=== PATIENT | female | born 1940 | race Caucasian/White ===

== ENCOUNTER 2016-08-26 12:49 | Inpatient (IN) | payer OTHER ==
[~2016-08-26] VITALS: Ht 157.5 cm; Wt 64.0 kg
[2016-08-26] MEDS ORDERED: GABA-532 PO (13:15)
[2016-08-26] MEDS ORDERED: GUAI120018 PO (13:15)
[2016-08-26] MEDS ORDERED: IBUP-1481 PO (13:15)
[2016-08-26] MEDS ORDERED: ASPI81TA31 PO (13:15)
[2016-08-26] MEDS ORDERED: SIMV20TA6 PO (13:15)
[2016-08-26] MEDS ORDERED: CALC-555 PO (13:15)
[2016-08-26] MEDS ORDERED: TEMA15CA5 PO (13:15)
[2016-08-26] MEDS ORDERED: TRAM50TA PO (13:15)
[2016-08-26] MEDS ORDERED: OMEP20CA10 PO (13:15)
--- NOTE | 2016-08-26 13:41 | NUR ---
pt transfered to floor in stable condition
--- NOTE | 2016-08-26 13:41 | NUR ---
hospital food tray provided per pt request,md ramos
[2016-08-26] MEDS ORDERED: MAGNESIUM HYDROXIDE 30 ML LIQUID UDC PO PRN (14:00)
[2016-08-26] MEDS ORDERED: LORAZEPAM 0.5 MG TABLET PO PRN (14:00)
[2016-08-26] MEDS ORDERED: TEMAZEPAM 7.5 MG CAPSULE PO PRN (14:00)
[2016-08-26] MEDS ORDERED: MAG HYDROX/AL HYDROX/SIMETH 30 ML LIQUID UDC PO PRN (14:00)
[2016-08-26] MEDS ORDERED: ACETAMINOPHEN 325 MG TABLET PO PRN (14:00)
--- NOTE | 2016-08-26 14:45 | NUR ---
[facility] PT IS ADMITTED FROM ER ON 5150 FOR DTS AND DTO. ACCORDING TO THE HOLD, PT HAD ARGUMENT WITH FAMILY, WAS UPSET ABOUT HER DAUGHTER SPENDING ALL THEIR MONEY. PT STATES THAT SHE WOULD KILL HERSELF. PT WAS PULLING HER HAIR OUT AND THEN TOOK A KNIFE AND PLACED IT TO HER THROAT. PT DENIES USING THE KNIFE. PT IS ANXIOUS ON APPROACH AND REPORTS MULTIPLE STRESSORS IN THE FAMILY, INCLUDING ONE OF HER DAUGHTER, WHO HAS 12 CHILDREN, LIVING IN A CAR AND BEING HOMELESS. PT STATES THAT HER IS GOING BLIND AND IT MAKES IT DIFFICULT FOR HER TO CARE FOR EVERYONE. PT ALSO REPORTS THAT SHE IS DRINKING DUE TO ALL THE STRESS. PT'S DAUGHTER SHIRA WAS CALLED AND MESSAGE LEFT. DR. HOBBS AND DR. HYDE WERE NOTIFED ABOUT ADMISSION. ALL BELONGINGS ACCOUNTED. NO DISTRESS AT THIS TIME.
[2016-08-26 15:38] VITALS: BP 143/94
[2016-08-26 20:00] VITALS: BP 151/86
[2016-08-26] MEDS ORDERED: IBUPROFEN 400 MG TABLET PO PRN (21:30)
[2016-08-27 07:30] VITALS: BP 116/65
[2016-08-27] MEDS: ASPIRIN 81 MG TAB.CHEW PO SCH (09:19)
[2016-08-27] MEDS: GABAPENTIN 100 MG CAPSULE PO SCH ×2 (09:19→17:12)
--- NOTE | 2016-08-27 10:16 | NUR ---
PT STATES SHE IS A SMOKER, BUT REFUSES NICOTINE PATCH. RISKS AND BENEFITS EXPLAINED.
--- NOTE | 2016-08-27 11:39 | NUR ---
Initial discharge plan: Pt resides with her domestic partner (Jt, ) at home([address] [facility];[place] [address]).SW spoke with pt regarding potential discharge plan and pt reported wanting to return home.SW spoke with patient's domestic partner and was told that he is unable to provide transportation because he does not have a car.However, he confirmed that the pt could return home.Additionally,he reported that his vision is deteriorating.He mentioned that he would ask his son if transportation could be provided,but reported not knowing how realistic that option was.Pt reported having ACCESS,but is unsure if her card has or whether the program would provide her transportation back home.Pt reported that she will call to explore if using ACCESS is an option.TRI will speak to MD,family,and pt to ensure a safe discharge plan is created.SW will form a safe and proper discharge plan.
--- NOTE | 2016-08-27 13:34 | NUR ---
Reviewed psychosocial done by Isak Plasencia. Addendum: 08/27/16 at 1335 by YOGI BARTLETT Amended: Links added.
--- NOTE | 2016-08-27 13:52 | NUR ---
UR Note: TRI faxed clinical's to [facility] [PH:[phone] ext. [phone]/ FX: [phone]] TRACKING# [id number].
[2016-08-27] MEDS: TRAMADOL HCL 50 MG TABLET PO PRN (14:34)
--- NOTE | 2016-08-27 15:54 | NUR ---
I reviewed psychosocial done by Isak Plasencia. Addendum: 08/27/16 at 1554 by YOGI BARTLETT Amended: Links added.
[2016-08-27 16:24] VITALS: BP 135/69
[2016-08-27 20:13] VITALS: BP 119/70
[2016-08-27] MEDS: QUETIAPINE FUMARATE 25 MG TABLET PO SCH (20:13)
[2016-08-27] MEDS: SIMVASTATIN 20 MG TABLET PO SCH (20:13)
--- NOTE | 2016-08-27 20:40 | NUR ---
PATIENT RECEIVED CALM AND COOPERATIVE IN ACTIVITIES ROOM WITH ANOTHER RESIDENT DOING A PUZZLE. PATIENT COMPLIANT WITH MEDICATIONS AND CARE. NO AGGRESSIVE OR COMBATIVE BEHAVIOR NOTED. PATIENT DEPRESSED, DENIES SI, WILL CONTINUE TO MONITOR. ABLE TO MAKE NEEDS KNOWN. KAYLA PAIN OR DISCOMFORT. IN NO ACUTE DISTRESS. PATIENT ENCOURAGED TO EXPRESS FEELINGS AND CONCERNS.
--- NOTE | 2016-08-28 05:40 | NUR ---
PATIENT SLEPT 8 HOURS. NO AGITATION, NO AGGRESSIVE OR COMBATIVE BEHAVIOR NOTED THROUGHOUT THE NIGHT.
[2016-08-28 07:30] VITALS: BP 115/62
[2016-08-28] MEDS: ESCITALOPRAM OXALATE 10 MG TABLET PO SCH (08:47)
[2016-08-28] MEDS: ASPIRIN 81 MG TAB.CHEW PO SCH (08:47)
[2016-08-28] MEDS: GABAPENTIN 100 MG CAPSULE PO SCH ×2 (08:47→17:54)
[2016-08-28] MEDS ORDERED: BISACODYL 10 MG SUPP.RECT RC PRN (10:45)
[2016-08-28] MEDS: MIRALAX 17 GM POWD.PACK PO SCH (10:45)
[2016-08-28] MEDS: NICOTINE 14 MG/24HR PATCH TD SCH (10:45)
--- NOTE | 2016-08-28 12:54 | NUR ---
UR Note: TRI faxed clinical's to [facility] [PH:[phone] ext. [phone]/ FX: [phone]] TRACKING# [id number].
[2016-08-28 15:12] VITALS: BP 124/70
--- NOTE | 2016-08-28 19:50 | NUR ---
PT IS VISIBLE ON THE UNIT, PLEASANT UPON APPROACH, INTERACTS WELL WITH PEERS DENIES S.I/HI/PAIN. NO DISTRESS NOTED AT THIS TIME, WILL CONTINUE TO MONITOR CLOSELY.
[2016-08-28] MEDS: SIMVASTATIN 20 MG TABLET PO SCH (20:20)
[2016-08-28] MEDS: QUETIAPINE FUMARATE 25 MG TABLET PO SCH (20:20)
[2016-08-28 20:30] VITALS: BP 127/79
--- NOTE | 2016-08-29 06:30 | NUR ---
PT SLEPT FAIRLY WELL ABOUT 7.15 HOURS, ASSISTED WITH GROOMING AND SHOWER, REMAINS PLEASANT UPON APPROACH, GETS ALONG WELL WITH ROOM MATE, WILL CONTINUE TO MONITOR.
[2016-08-29 07:06] LABS: BASOPHILS % (AUTO) 1.1 % (0.0-2.0); EOSINOPHILS # (AUTO) 0.1 K/uL (0.0-0.7); HEMATOCRIT 38.7 % (31.2-41.9); HEMOGLOBIN 12.8 g/dL (10.9-14.3); LYMPHOCYTES # (AUTO) 1.6 K/uL (20.0-40.0); LYMPHOCYTES % (AUTO) 37.3 % (20.5-51.5); MEAN CORPUSCULAR HEMOGLOBIN 30.7 uug (24.7-32.8); MEAN CORPUSCULAR HGB CONC 33 g/dL (32.3-35.6); MEAN CORPUSCULAR VOLUME 92.7 fL (75.5-95.3); MONOCYTES # (AUTO) 0.4 K/uL (2.0-10.0); MONOCYTES % (AUTO) 10.2 % (0.0-11.0); NEUTROPHILS # (AUTO) 2.1 K/uL (1.8-8.9); NEUTROPHILS % (AUTO) 48.4 % (38.5-71.5); PLATELET COUNT (AUTO) 220 K/uL (179-408); RED BLOOD CELL COUNT(AUTO) 4.18 MIL/uL (3.63-4.92); RED CELL DISTRIBUTION WIDTH 12.9 % (12.3-17.7); WHITE BLOOD COUNT (AUTO) 4.2 K/uL (3.8-11.8)
[2016-08-29 07:30] VITALS: BP 113/74
[2016-08-29 07:42] LABS: THYROID STIMULATING HORMONE 1.767 mIU/mL (0.358-3.740)
[2016-08-29] MEDS: TRAMADOL HCL 50 MG TABLET PO PRN (07:43)
[2016-08-29 07:44] LABS: ALBUMIN 3.6 g/dL (3.4-5.0); BILIRUBIN,TOTAL 0.7 mg/dL (0.2-1.0); CALCIUM 9.1 mg/dL (8.5-10.1); CREATININE 0.8 mg/dL (0.6-1.3); MAGNESIUM 2.4 mg/dL (1.8-2.4); PHOSPHOROUS 4.2 mg/dL (2.5-4.9); POTASSIUM 4.3 mmol/L (3.5-5.1); TOTAL PROTEIN, SERUM 6.8 g/dL (6.4-8.2)
[2016-08-29] MEDS: NICOTINE 14 MG/24HR PATCH TD SCH (07:54)
[2016-08-29] MEDS: MIRALAX 17 GM POWD.PACK PO SCH (07:54)
[2016-08-29] MEDS: ESCITALOPRAM OXALATE 10 MG TABLET PO SCH (07:54)
[2016-08-29] MEDS: GABAPENTIN 100 MG CAPSULE PO SCH ×2 (07:55→17:27)
[2016-08-29] MEDS: ASPIRIN 81 MG TAB.CHEW PO SCH (07:55)
--- NOTE | 2016-08-29 11:23 | NUR ---
WEEKLY MEETING PT EATING WELL, 100% X LAST 6 RECORDED MEALS ON CARDIAC DIET. NO DIET RECOMMENDATIONS AT THIS TIME. LAST BM ON 08/28 SKIN INTACT MEDS: MIRALAX, ZOCOR; NO DNI NOTED LABS WNL NOTED 4 LB WEIGHT GAIN IN 2 DAYS, MOST LIKELY MEASUREMENT ERROR, REC TO REWEIGH PT. NO NUTRITION DIAGNOSIS AT THIS TIME MONITOR PO, WEIGHT, LABS Addendum: 08/29/16 at [address] Amended: Links added.
[2016-08-29 16:00] VITALS: BP 141/66
[2016-08-29] MEDS: SIMVASTATIN 20 MG TABLET PO SCH (20:19)
[2016-08-29] MEDS: QUETIAPINE FUMARATE 25 MG TABLET PO SCH (20:19)
[2016-08-29 20:31] VITALS: BP 118/58
--- NOTE | 2016-08-29 20:59 | NUR ---
PATIENT RECEIVED AOX3 COOPERATIVE AND COMPLIANT. DENIES ANY SI AT THIS TIME. OBSERVED INTERACTING WITH PEER IN GROUP. NO ACUTE DISTRESS NOTED. COMPLIANT WITH MEDICATIONS,WILL CONTINUE TO MONITOR FOR SAFETY.
[2016-08-30 07:30] VITALS: BP 128/80
[2016-08-30] MEDS: ESCITALOPRAM OXALATE 10 MG TABLET PO SCH (08:08)
[2016-08-30] MEDS: MIRALAX 17 GM POWD.PACK PO SCH (08:08)
[2016-08-30] MEDS: ASPIRIN 81 MG TAB.CHEW PO SCH (08:08)
[2016-08-30] MEDS: NICOTINE 14 MG/24HR PATCH TD SCH (08:08)
[2016-08-30] MEDS: GABAPENTIN 100 MG CAPSULE PO SCH (08:08)
--- NOTE | 2016-08-30 11:08 | NUR ---
DC Note: Patient will be discharged back home [[address] [place] [address]; [phone]] via private transportation at 1:00 pm. Spoke with Seng [phone] [facility] who stated the patient will be picked up today. Spoke with patients , Jt [phone] who is aware and agreeable with discharge plans. Patient is aware and agreeable with discharge plans. Dr.Bindu Burger ([employer]) [[address] [place] [address]; ]. Patient will follow-up with a [facility] Psychiatrist. Patient was provided with a brief substance abuse intervention and referred to [facility] , [facility] , and [facility] . For smoking cessation, patient was referred to [place] [employer] 800-LUNGUSA and [employer] [phone]. Patient was also referred to the Nicotine Anonymous meeting on Thursday September 01, 2016 at 9:00 am at [address] [place], [address].
--- NOTE | 2016-08-30 13:30 | NUR ---
GPS.RN- DISCHARGE NOTE patient alert and oriented to person place time and situation. compliant with meds and care. patient pleasant, no aggressive behavior. no suicidal ideation noted no homicidal ideation, able to verbalize needs, provided discharge instructions with follow up care with obstetric anaesthetist in one week. Patient will be discharged back home [[address] [place] [address]; [phone]] via private transportation .Patient is aware and agreeable with discharge plans. Dr.Bindu Burger ([employer]) [[address] [place] [address]; ]. Patient will follow-up with a [facility] Psychiatrist. patient provided with discharge instructions questions and concerns addressed. belongings returned and accounted for. patient discharged in stable condition.
== END 2016-08-30 13:30 | disposition home or self-care (01) | DRG 885 ==
LOC: ER 12:49 → GPS 13:35
PROVIDERS: ADMIT Psychiatry & Neurology Psychiatry; ATTEND Psychiatry & Neurology Psychiatry
DX: F33.2 Major depressive disorder, recurrent severe without psychotic features (principal); R45.851 Suicidal ideations; E87.0 Hyperosmolality and hypernatremia; Z88.5 Allergy status to narcotic agent; E11.9 Type 2 diabetes mellitus without complications; E78.5 Hyperlipidemia, unspecified; Z72.89 Other problems related to lifestyle
CPT/HCPCS: 36415; 83735; 84100; 84443; 85025; 97001; A4663